=== PATIENT | male | born 1960 | race Caucasian/White ===

== ENCOUNTER 2020-06-29 14:32 | Emergency (ER) | payer OTHER ==
[2020-06-29 15:21] LABS: Protime INR 0.9
[2020-06-29 15:37] LABS: Potassium 4.5 mmol/L (3.5-5.1)
[2020-06-29] MEDS ORDERED: FENTANYL CITR 100 MCG/2 ML ONE (15:39)
--- NOTE | 2020-06-29 15:43 | RAD REPORT ---
EXAM DESCRIPTION: RAD - Hip Right 2 View - 06/29/2020 3:24 pm CLINICAL HISTORY: Right hip pain FINDINGS: A moderately displaced subcapital fracture right femur. No dislocation
[2020-06-29 15:44] LABS: Basophils % 0.5 % (0-1.3); Hematocrit 41.8 % (39.6-49.0); Lymphocytes % 6.2 % (15.3-44.8); MPV 9.5 fL (7.6-11.3); RBC Red Blood Cell Count 4.75 M/uL (4.33-5.43)
[2020-06-29 15:47] LABS: Absolute Lymphocytes (CBC) 1.2 K/uL (0.7-4.9)
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
[2020-06-29 16:42] LABS: Blood Morphology Comment NOT SEEN (NOT SEEN); Platelet Estimate ADEQ
[2020-06-29] MEDS ORDERED: MORPHINE 4 MG/ML SYR ONE (18:27)
[2020-06-29] MEDS ORDERED: D50W 25 GM/50 ML SYRINGE/VIAL IV ONE (18:32)
[2020-06-29] MEDS ORDERED: D5 0.9 NS 1,000 ML IV ONE (18:32)
[2020-06-29 18:51] VITALS: TEMP 99.1
[2020-06-29 18:52] VITALS: BP 123/77; O2SAT 96
--- OUTSIDE RECORDS SUMMARY | 2020-07-04 20:50 | XMS REPORT | Clinical Summary ---
:1960 Author Organization [facility] Address [address] [place] [address] Care Team Providers Name Role Phone Unavailable Primary Care Provider Unavailable Allergies No Known Allergies Medications Medication Sig Dispensed Refills Start End Date Status Date insulin lispro 30 untis daily 0 Active (HUMALOG) 100 6 unit/mL InPn xjiojyrvovkg-Dy-b Take by mouth. 0 Active adriano-minerals Tab lisinopriL TAKE 1 TABLET BY 0 Ac tive (PRINIVIL,ZESTRIL MOUTH DAILY 0 ) 20 MG tablet insulin glargine Inject 50 Units 0 0 Active (LANTUS SOLOSTAR subcutaneously. 0 20 U-100 INSULIN) 100 unit/mL (3 mL) InPn simvastatin Take 20 mg by 0 Acti ve (ZOCOR) 20 MG mouth. 0 tablet aspirin 325 MG Take 1 tablet (325 30 tablet 0 Active tablet mg total) by mouth 0 20 daily for 30 days. docusate sodium Take 1 capsule (100 10 capsule 0 Active (COLACE) 100 MG mg total) by mouth 0 20 capsule 2 (two) times daily for 10 days. HYDROcodone-aceta Take 1 tablet by 30 tablet 0 07/12 Active minophen (NORCO mouth every 4 0 20 5-325) 5-325 mg (four) hours as per tablet needed for up to 10 days. Max Daily Amount: 6 tablets atorvastatin 1 tablet q d 0 06/30/20 Disc ontinued (LIPITOR) 10 MG 2 20 tablet insulin lispro Humalog Kwikpen 0 06/30/20 Discontinued (HUMALOG) 100 INJECT SUBCUTANEOUSLY 90 UN ITS DAILY IN DIVIDED DOSES for 90 day supply 0 20 unit/mL InPn Active Problems Problem Noted Date Hip fracture 06/30/2020 Closed displaced fracture of right femoral neck 2019 Encounters Date Type Specialty Care Team Description 06/30/2020 Anesthesia Event Mathew Pham MD 06/30/2020 Surgery Daquan Shipley ARTHROPIRVIN Y,HIP MD [place] 06/30/2020 Orders Only General Internal Medicine 06/30/2020 Travel 06/29/2020 - Hospital Encounter General Internal Abby, Close d fracture of 07/02/2020 Medicine Misty right hip, init alvaro Levy MD encounter ([facility]) Ayesha Venegas MD after 07/04/2019 Social History Tobacco Use Types Packs/Day Years Used Date Never Smoker Smokeless Tobacco: Never Used Alcohol Use Drinks/Week oz/Week Comments Yes 3 Cans of beer 1.8 once a month Sex Assigned at Date Recorded Not on file Job Start Date Occupation Industry Not on file Not on file Not on file Travel History Travel Start Travel End No recent travel history available. Last Filed Vital Signs Vital Sign Reading Time Taken Blood Pressure 107/55 07/02/2020 11:00 AM CDT Pulse 92 07/02/2020 11:00 AM CDT Temperature 36.4 C (97.5 F) 07/02/2020 11:00 AM CDT Respiratory Rate 18 07/02/2020 11:00 AM CDT Oxygen Saturation 96% 07/02/2020 11:00 AM CDT Inhaled Oxygen Concentration - - Weight 81.6 kg (180 lb) 07/01/2020 9:12 AM CDT Height 175.3 cm (5' 9") 07/01/2020 9:12 AM CDT Body Mass Index 26.58 07/01/2020 9:12 AM CDT Plan of Treatment Health Maintenance Due Date Last Done Comments COLON CANCER SCREENING 1960 COLONOSCOPY INFLUENZA VACCINE (#1) 2020 07/18/2010, 06/28/2010, 07/12/2009, Additional history exists LIPID PANEL 06/30/2025 06/30/2020, 06/12/2020 Implants Implanted Type Area Superior Court Clerk Device Shelf Model / Identifier Expiration Serial / Date Lot Insrt Trident X3 0deg 36mm 623-00-36e - [id number] TOTAL JOINT Right: REILLY:REILLY [id number] 11/27/2024 623-00-36E / Implanted: Qty: 1 on 06/30/2020 by Daquan Shipley MD CONSTRUCT Hip ORTHOPAEDICS / [id number] Hip Stem Accolade Ii 132d 8 [id number] - [id number] TOTAL JOINT Right: REILLY:REILLY [id number] 11/18/2024 [id number] / Implanted: Qty: 1 on 06/30/2020 by Daquan Shipley MD CONSTRUCT Hip ORTHOPAEDICS / [id number] Head Fem 36mm Biolox Delta Cer [id number] - [id number] TOTAL JOIN T Right: REILLY:REILLY [id number] 04/09/2025 [id number] / Implanted: Qty: 1 on 06/30/2020 by Daquan Shipley MD CONSTRUCT Hip ORTHOPAEDICS / [id number] Trident Ii Tritanium Multihole Acetabular Shell Right: [place] [id number] 05/15/2024 [id number] / Implanted: Qty: 1 on 06/30/2020 by Daquan Shipley MD Hip Orthopaedics / [id number] Procedures Procedure Name Priority Date/Time Associated Comments Diagnosis TRANSFUSION SERVICE 07/02/2020 6:01 REPORT - SCAN PM CDT PREPARE RBC Routine 07/02/2020 4:46 Results for this PM CDT procedure are i n the results section. POCT-GLUCOSE METER Routine 07/02/2020 11:20 Resul ts for this AM CDT procedure are i n the results section. POCT-GLUCOSE METER Routine 07/02/2020 8:08 Resul ts for this AM CDT procedure are i n the results section. CBC (HEMOGRAM ONLY) Routine 07/02/2020 5:42 Resu lts for this AM CDT procedure are i n the results section. BASIC METABOLIC PANEL Routine 07/02/2020 5:42 Re sults for this (7) AM CDT procedure are i n the results section. POCT-GLUCOSE METER Routine 07/01/2020 9:25 Resul ts for this PM CDT procedure are i n the results section. TRANSFUSION SERVICE 07/01/2020 6:00 REPORT - SCAN PM CDT POCT-GLUCOSE METER Routine 07/01/2020 4:21 Resul ts for this PM CDT procedure are i n the results section. POCT-GLUCOSE METER Routine 07/01/2020 12:08 Resul ts for this PM CDT procedure are i n the results section. ECG 12-LEAD Routine 07/01/2020 11:25 AM CDT Procedure Note - Interface, External Ris In - 07/01/2020 1:28 PM CDT Ventricular Rate 100 BPM Atrial Rate 100 BPM P-R Interval 130 ms QRS Duration 72 ms Q-T Interval 334 ms QTC Calculation(Bazett) 430 ms P Stinnett 50 degrees R Stinnett 11 degrees T Stinnett 34 degrees Normal sinus rhythm Normal ECG When compared with ECG of 08:27, No significant change was fo und ECG 12-LEAD Routine 07/01/2020 11:25 AM Results for this CDT procedure are i n the results section. ANTIBODY IDENTIFICATION Routine 07/01/2020 9:24 AM Results for this CDT procedure are i n the results section. POCT-GLUCOSE METER Routine 07/01/2020 7:06 AM Re sults for this CDT procedure are i n the results section. CBC (HEMOGRAM ONLY) Routine 07/01/2020 4:55 AM R esults for this CDT procedure are i n the results section. BASIC METABOLIC PANEL Routine 07/01/2020 4:55 AM Results for this (7) CDT procedure are i n the results section. POCT-GLUCOSE METER Routine 06/30/2020 9:25 PM Re sults for this CDT procedure are i n the results section. POCT-GLUCOSE METER Routine 06/30/2020 4:34 PM Re sults for this CDT procedure are i n the results section. XR PELVIS 1 OR 2 VIEWS STAT 06/30/2020 3:15 PM Results for this CDT procedure are i n the results section. XR PELVIS 1 OR 2 VIEWS STAT 06/30/2020 2:10 PM Results for this CDT procedure are i n the results section. ARTHROPLASTY,HIP 06/30/2020 12:30 PM Closed right hip CDT fracture, initial encounter (HCC) ABORH, MANUAL STAT 06/30/2020 12:02 PM Results for this CDT procedure are i n the results section. POCT-GLUCOSE METER Routine 06/30/2020 11:08 AM Re sults for this CDT procedure are i n the results section. TYPE AND SCREEN, Routine 06/30/2020 9:54 AM Resu lts for this AUTOMATED CDT procedure are i n the results section. ECG 12-LEAD Routine 06/30/2020 8:27 AM CDT Procedure Note - Interface, External Ris In - 06/30/2020 1:28 PM CDT Ventricular Rate 95 BPM Atrial Rate 95 BPM P-R Interval 144 ms QRS Duration 68 ms Q-T Interval 342 ms QTC Calculation(Bazett) 429 ms P Stinnett 52 degrees R Stinnett 11 degrees T Stinnett 35 degrees Normal sinus rhythm Normal ECG No previous ECGs available ECG 12-LEAD STAT 06/30/2020 8:27 AM CDT Resu lts for this procedure are i n the results section . POCT-GLUCOSE METER Routine 06/30/2020 7:05 AM CDT Results for this procedure are i n the results section . SARS-COV2/RT-PCR (HS & Routine 06/30/2020 4:51 AM CDT Results for this REF LABS) procedure are i n the results section . CBC W/PLT COUNT & AUTO Routine 06/30/2020 4:40 AM CDT Results for this DIFFERENTIAL procedure are i n the results section . CBC W/PLT COUNT & AUTO Routine 06/30/2020 4:40 AM CDT Results for this DIFFERENTIAL procedure are i n the results section . LIPID PANEL Routine 06/30/2020 4:40 AM CDT Resu lts for this procedure are i n the results section . HEPATIC FUNCTION PANEL Routine 06/30/2020 4:40 AM CDT Results for this procedure are i n the results section . HEMOGLOBIN A1C Routine 06/30/2020 4:40 AM CDT Re sults for this procedure are i n the results section . BASIC METABOLIC PANEL (7) Routine 06/30/2020 4:40 AM CDT Results for this procedure are i n the results section . POCT-GLUCOSE METER Routine 06/29/2020 11:21 PM CDT Results for this procedure are i n the results section . POCT-GLUCOSE METER Routine 06/29/2020 10:31 PM CDT Results for this procedure are i n the results section . after 07/04/2019 Results TRANSFUSION SERVICE REPORT - SCAN (07/02/2020 6:01 PM CDT)Only the most recent of2 resultswithin the time period is included. Narrative Performed At This result has an attachment that is no t available. Prepare RBC (07/02/2020 4:46 PM CDT) Unit ABO A Pos [place] UNIT NUMBER [id number] [place] Status WORK IN PROGRESS [place] Blood Bank Product RED BLOOD CELLS [place] PRODUCT CODE [id number] SAFETRACE TX Unit ABO A Pos [place]AF[place]ACE [place] UNIT NUMBER [id number] [place]AFET[place]ACE [place] Status WORK IN PROGRESS SAFETRACE [place] Blood Bank Product RED BLOOD CELLS [place] PRODUCT CODE [id number] [place] CROSSMATCH COMPATIBLE [place] CROSSMATCH COMPATIBLE S[place] Specimen Performing Organization Address [facility] Phone Number [place] POC-Glucose meter (07/02/2020 11:20 AM CDT)Only the most recent of12 results within the time period is included. POC-Glucose Meter 142 (H)Comment: : TESTED 70 - 110 mg/dL [facility] AT [address], [address]: Mud Mixer Helper/Plastic Parts Fabricator Trimmer ID = [id number] for HERBIE PAUL Specimen Blood Performing Organization Address [facility] [place] [address] CENTER CBC (Hemogram only) (07/02/2020 5:42 AM CDT)Only the most recent of2 results within the time period is included. WBC 13.6 (H) 3.5 - 10.5 K/L [facility] RBC 3.83 (L) 4.63 - 6.08 M/L [facility] Hemoglobin 11.2 (L) 13.7 - 17.5 GM/DL [facility] Hematocrit 34.9 (L) 40.1 - 51.0 % [facility] MCV 91.1 79.0 - 92.2 fL [facility] MCH 29.2 25.7 - 32.2 pg [facility] MCHC 32.1 (L) 32.3 - 36.5 GM/DL [facility] RDW 12.9 11.6 - 14.4 % [facility] Platelets 158 150 - 450 K/CU MM [facility] MPV 12.1 9.4 - 12.4 fL [facility] nRBC 0 0 - 0 /100 WBC [facility] Specimen Blood Performing Organization Address City/[facility]/Zipcode Phone Number [facility] [address] [place] [address] CENTER Basic metabolic panel (07/02/2020 5:42 AM CDT)Only the most recent of3 results within the time period is included. Sodium 135 (L) 136 - 145 meq/L [facility] Potassium 4.6Comment: Specimen slightly 3.5 - 5.1 meq/L CH I [facility] Chloride 104 98 - 107 meq/L [facility] CO2 22 22 - 29 meq/L [facility] BUN 19 7 - 21 mg/dL [facility] Creatinine 1.20Comment: Specimen 0.57 - 1.25 mg/dL [facility] slightly hemolyzed [facility] Glucose 202 (H) 70 - 105 mg/dL [facility] Calcium 7.6 (L) 8.4 - 10.2 mg/dL [facility] EGFR 61Comment: ESTIMATED GFR IS mL/min/1.73 sq m [facility] NOT ACCURATE CREATININE AL DICAL CENTER CLEARANCE IN PREDICTING GLOMERULAR FILTRATION RATE. ESTIMATED GFR IS NOT APPLICABLE FOR DIALYSIS PATIENTS. Specimen Blood Narrative Performed At Mud Mixer Helper ID - CLAUDEASI [facility] Performing Organization Address City/State/Zipcode Phone Number [facility] [address] [place] [address] CENTER ECG 12 lead (07/01/2020 11:25 AM CDT)Only the most recent of2 resultswithin the time period is included. Specimen Narrative Performed At Ventricular Rate 100 BPM GE MUSE Atrial Rate 100 BPM P-R Interval 130 ms QRS Duration 72 ms Q-T Interval 334 ms QTC Calculation(Bazett) 430 ms P Stinnett 50 degrees R Stinnett 11 degrees T Stinnett 34 degrees Normal sinus rhythm Normal ECG When compared with ECG of 30-JUN-2020 08 :27, No significant change was found Confirmed by MD MISHRA JOSEPH P ([id number]) on 0 6:41:06 AM Procedure Note Interface, External Ris In - 07/02/2020 6:41 AM CDT Ventricular Rate 100 BPM Atrial Rate 100 BPM P-R Interval 130 ms QRS Duration 72 ms Q-T Interval 334 ms QTC Calculation(Bazett) 430 ms P Stinnett 50 degrees R Stinnett 11 degrees T Stinnett 34 degrees Normal sinus rhythm Normal ECG When compared with ECG of 30-JUN-2020 08 :27, No significant change was found Confirmed by MD MISHRA JOSEPH P ([id number]) on 07/02/2020 6:41:06 AM Performing Organization Address City/State/Zipcode Phone Number GE MUSE Antibody identification (07/01/2020 9:24 AM CDT) ANTIBODY ID (JOSIAH) UNID IgG SAFETRACE T X Antibody Consult SIGNED OUTComment: An IgG antibody of [place] undetermined specificity is detected, transfuse crossmatch compatible RBCs.Electronic Signature: Leonel Zepeda M.D. Specimen Performing Organization Address City/State/Zipcode Phone Number [place] XR pelvis 1 or 2 views (06/30/2020 3:15 PM CDT)Only the most recent of2 results within the time period is included. Specimen Narrative Performed At FINAL REPORT [employer] RAD, PELVIS, 1 OR 2 VIEWS TECHNIQUE: Single frontal radiograph of pelvis HISTORY: arthroplasty. COMPARISON: Prior radiograph same day at 1351 hours IMPRESSION: The patient is status post interval righ t total hip arthroplasty. The femoral aidan and acetabular cup appear we ll positioned on this single frontal radiograph. No new fracture identified. No unexpected radiopaque foreign body. E xpected soft tissue gas related to recent surgery. Signed: Celia Self MD Report Verified Date/Time:06/30/2020 16:25:30 Reading [facility] Body R eading Room Procedure Note Interface, External Ris In - 06/30/2020 4:27 PM CDT FINAL REPORT RAD, PELVIS, 1 OR 2 VIEWS TECHNIQUE: Single frontal radiograph of pelvis HISTORY: arthroplasty. COMPARISON: Prior radiograph same day at 1351 hours IMPRESSION: The patient is status post interval righ t total hip arthroplasty. The femoral aidan and acetabular cup appear we ll positioned on this single frontal radiograph. No new fracture identified. No unexpected radiopaque foreign body. E xpected soft tissue gas related to recent surgery. Signed: Celia Self MD Report Verified Date/Time: 06/30/2020 1 6:25:30 Reading Location: [facility] B1 C013[facility] CT Body R eading Room Performing Organization Address City/State/Zipcode Phone Number GE RIS ABORH, manual (06/30/2020 12:02 PM CDT) ABO Grouping A [facility] Rh Factor POS [facility] Specimen Blood Performing Organization Address City/[facility]/Zipcode Phone Number [address] [address] Type and screen, automated (06/30/2020 9:54 AM CDT) ABO/RH AUTOMATED (BEAKER) A POSITIVE [facility] Ab Scrn POSITIVEComment: echo2 [facility] Specimen Blood Performing Organization Address City/[facility]/Zipcode Phone Number [address] [address] SARS-CoV2/RT-PCR (Asymptomatic ONLY) (06/30/2020 4:51 AM CDT) SARS-COV2/RT-PCR Negative Not Detected, Negative, [facility] See external report for MEDICAL CENTER linked test SARS-COV-2 PERFORMING LAB [facility] Specimen Other Narrative Performed At Negative result for this test determines that [facility] SARS-CoV-2 RNA was not present in the specimen above the Limit of Detection (LOD).However, Negative results do not preclude SARS-CoV-2 infection and should not be used as the sole basis for treatment or patient management decisions. Negative results must be combined with clinical observations, patient history, and epidemiological information. A false negative result may occur if a specimen is improperly collected, transported or handled.A false negative result should be considered if patient's recent exposures or clinical presentation indicate that COVID-19 (SARS-CoV-2) is likely and diagnostic tests for other causes of illness are negative.Re-testing should be considered in cases of suspected false negatives. The limit of detection for this assay is 800 copies/mL. This SARS CoV-2 test is a real-time RT-PCR test intended for the qualitative detection of nucleic acid from SARS-CoV-2 in a nasopharyngeal swab specimen collected from individuals suspected of COVID-19 by their healthcare provider. This test has not been Food and Drug Administration (FDA) cleared or approved.This is a modified version of an approved Emergency Use Authorization (EUA) and is in the process of review by the FDA. Once authorized by the FDA, the issued EUA will be effective until the declaration that circumstances exist justifying the authorization of the emergency use of in vitro diagnostic tests for detection and/or diagnosis of COVID-19 is terminated under Section 564(b)(2) of the Act or the EUA is revoked under Section 564(g) of the Act. Fact Sheet for Healthcare Providers: https://www.[employer].com/sites/default/files/pro duct/documents/Fact_Sheet_HC_Providers_Lyra_SA RS-CoV-2.pdf Fact Sheet for Healthcare Patients: https://www.[employer]/sites/default/files/pro duct/documents/Fact_Sheet_Patients_Lyra_SARS-C oV-2.pdf Performing Laboratory: [facility] [address] [place] [address] Performing Organization Address City/State/Zipcode Phone Number [facility] [address] [place] [address] CENTER CBC with platelet count + automated diff (06/30/2020 4:40 AM CDT) WBC 12.2 (H) 3.5 - 10.5 K/L [facility] RBC 4.44 (L) 4.63 - 6.08 M/L [facility] Hemoglobin 12.8 (L) 13.7 - 17.5 GM/DL [facility] Hematocrit 40.3 40.1 - 51.0 % [facility] MCV 90.8 79.0 - 92.2 fL [facility] MCH 28.8 25.7 - 32.2 pg [facility] MCHC 31.8 (L) 32.3 - 36.5 GM/DL [facility] RDW 12.9 11.6 - 14.4 % [facility] Platelets 171 150 - 450 K/CU MM [facility] MPV 11.2 9.4 - 12.4 fL [facility] nRBC 0 0 - 0 /100 WBC [facility] % Neutros 72 % [facility] % Lymphs 13 % [facility] % Monos 12 % [facility] % Eos 3 % [facility] % Baso 0 % [facility] # Neutros 8.82 (H) 1.78 - 5.38 K/L [facility] # Lymphs 1.57 1.32 - 3.57 K/L [facility] # Monos 1.45 (H) 0.30 - 0.82 K/L [facility] # Eos 0.31 0.04 - 0.54 K/L [facility] # Baso 0.05 0.01 - 0.08 K/L [facility] Immature Granulocytes-Relative 0 0 - 1 % C [facility] Specimen Blood Performing Organization Address City/[facility]/Zipcode Phone Number [address] [address] CENTER Hemoglobin A1c (06/30/2020 4:40 AM CDT) Hemoglobin A1C 5.8 4.3 - 6.1 % [facility] Specimen Blood Performing Organization Address City/[facility] Phone Number [address] [address] [place] Hepatic function panel (06/30/2020 4:40 AM CDT) Protein, Total 6.1 6.0 - 8.3 gm/dL [facility] Albumin 3.5 3.5 - 5.0 g/dL [facility] Total Bilirubin 1.5 (H) 0.2 - 1.2 mg/dL [facility] Bilirubin, Direct 0.7 (H) 0.1 - 0.5 mg/dL [facility] Alkaline Phosphatase 63 40 - 150 U/L [facility] AST 21 5 - 34 U/L [facility] ALT 24 6 - 55 U/L [facility] Specimen Blood Narrative Performed At Mud Mixer Helper ID - PIAYA L [facility] Performing Organization Address City/[facility] Phone Number [address] [address] CENTER Lipid panel (06/30/2020 4:40 AM CDT) Triglycerides 81 mg/dL [facility] Cholesterol 107 mg/dL [facility] HDL 37 mg/dL [facility] LDL Calculated 54 mg/dL [facility] Specimen Blood Narrative Performed At Triglyceride Reference Range: [facility] Low Risk <150 [id number] High Risk 200-499 Very High Risk>=500 Cholesterol Reference Range: Low Risk <200 [id number] High Risk>240 HDL Cholesterol Reference Range: Low Risk >=60 High Risk <40 LDL Cholesterol Reference Range: Optimal<100 Near [id number] [id number] Very High >=190 Mud Mixer Helper ID - MARYJO Catherine Performing Organization Address City/State/Zipcode Phone Number [facility] [address] [place] [address] [place] after 07/04/2019 Insurance Payer Benefit Plan / Group Subscriber ID Type Phone A ddress [facility] [employer] POS [employer] xxxxxxxxx HMO/POS CARE CHOICE (Work) [id number] Advance Directives For more information, please contact:[address] [phone] Code Status Date Activated Date Inactivated Comments Full Code 06/30/2020 7:45 AM 07/02/2020 6:46 PM This code status was determined by: Patient
--- OUTSIDE RECORDS SUMMARY | 2020-07-04 20:51 | XMS REPORT | Continuity of Care Document ---
:1960 Author Organization [facility] t Address [address] [place] [address] Care Team Providers Name Role Phone Abby SALAS, Misty Levy Attending Clinician [phone] Hemalatha Venegas MD Attending Clinician Georges Pham MD Attending Clinician Leighton Shipley MD Attending Clinician BETZY CHAIDEZ Attending Clinician Unavailable MARVEL Attending Clinician Unavailable BETZY CHAIDEZ Admitting Clinician Unavailable Payers Payer Name Policy Type Policy Number Effective Date Expiration Date S laura [place] xxxxxxxxx [facility] - [facility] - Medica l CAREUNITED O Center POS SELECT CHOICExxxxxxxxxH MO/POS Problems Condition Condition Condition Status Onset Resolution Last Treating Co mments Source Name Details Category Date Date Treatment Clinician Date Hip Hip Disease Active 2019-[address] [facility] [address] fracture fracture 0-03 [facility] Center Closed Closed Disease Active 2019-[address] [facility] [address] displaced displaced 0-03 ke s - fracture fracture 00:00: Medica l of right of right 00 Center femoral femoral neck neck Allergies, Adverse Reactions, Alerts This patient has no known allergies or adverse reactions. Social History Social Habit Start Date Stop Date Quantity Comments Source Sex Assigned At [facility] Alcohol Comment 2020-06-30 2020-06-30 once a month [facility] - 00:00:00 00:00:00 [facility] [place] Smoking Status Start Date Stop Date Source Never smoker [facility] Medications Ordered Filled Start Stop Current Ordering Indication Dosage Frequency Signature Comments Components Source Medication Medication Date Date Medication? Clinician (SIG) Name Name aspirin 325 2019-09 2020- Yes 325mg QD Take [address] [facility] tablet 0-06 11-05 tablet [facility] - 00:00: 23:59 (325 mg Medical 00 :00 total) by Center mouth daily for 30 days. docusate 2019-09- Yes 100mg Q.5D Take 1 [facility] sodium 0-05 10-15 capsule [facility] - (COLACE) 00:00: 23:59 (100 mg Medic al 100 MG 00 :00 total) by [place] capsule mouth 2 (two) times daily for 10 days. HYDROcodone 2019-09- Yes 1{tbl} Take [address] -acetaminop 0-05 10-15 tablet by Pamella quinones (NORCO 00:00: 23:59 mouth Medic al 5-325) 00 :00 every 4 Center 5-325 mg (four) per tablet hours as needed for up to 10 days. Max Daily Amount: 6 tablets multivitami 2019-09 Yes Take by [facility]-Ca-iron-m 003 mouth. [facility] - inerals Tab 12:34: Medica l 38 [place] insulin 2019- Yes 50U Inject [address] glargine 9-22 12-21 Units [facility] - (LANTUS 00:00: 23:59 subcutaneo Med ical SOLOSTAR 00 :00 usly. [place] U-100 INSULIN) 100 unit/mL (3 mL) In lisinopriL Yes TAKE 1 [facility] (PRINIVIL,Z 6-08 TABLET BY Da Machado ESTRGARY) 20 00:00: MOUTH Medica l MG tablet 00 DAILY [place] insulin 2020- No Humalog [facility] lispro 6-08 10-03 Kwikpen [facility] - (HUMALOG) 00:00: 00:00 INJECT Medic al 100 unit/mL 00 :00 SUBCUTANEO Ce nter InPn USLY 90 UNITS DAILY IN DIVIDED DOSES for 90 day supply simvastatin Yes 20mg Take [address] (ZOCOR) 20 1-21 by mouth. Luke s - MG tablet 00:00: Medical 00 [place] insulin Yes [address] lispro 5-26 daily [facility] - (HUMALOG) 00:00: Medical 100 unit/mL 00 Center InPn atorvastati 2001- 2020- No 1 tablet q [facility] St n (LIPITOR) 10-15 d [facility] - 10 MG 00:00: 00:00 Medical tablet 00 :00 [place] Vital Signs Vital Name Observation Time Observation Value Comments Source Systolic blood 2020-07-02 11:00:00 107 mm[Hg] [facility] Diastolic blood 2020-07-02 11:00:00 55 mm[Hg] [facility] Heart rate 2020-07-02 11:00:00 92 /min [facility] Body temperature 2020-07-02 11:00:00 36.39 Jennifer [facility] Respiratory rate 2020-07-02 11:00:00 18 /min [facility] Oxygen saturation in 2020-07-02 11:00:00 96 /min [facility] Arterial blood by Medical Ce nter Pulse oximetry Body height 2020-07-01 09:12:00 175.3 cm [facility] Body weight Measured 2020-07-01 09:12:00 81.647 kg [facility] BMI 2020-07-01 09:12:00 26.58 kg/m2 [facility] Procedures Procedure Date / Time Performing Clinician Source Performed TRANSFUSION SERVICE 2020-07-02 18:01:03 Provider, Default [facility] REPORT - SCAN Scanning [facility] PREPARE RBC 2020-07-02 16:46:00 Daquan Shipley [facility] POCT-GLUCOSE METER 2020-07-02 11:20:00 Ayesha Venegas [facility] POCT-GLUCOSE METER 2020-07-02 08:08:00 Ayesha Venegas [facility] BASIC METABOLIC PANEL (7) 2020-07-02 05:42:00 Daquan Shipley [facility] CBC (HEMOGRAM ONLY) 2020-07-02 05:42:00 Daquan Shipley [facility] POCT-GLUCOSE METER 2020-07-01 21:25:00 Ayesha Venegas [facility] TRANSFUSION SERVICE 2020-07-01 18:00:40 Provider, Roxy [facility] POCT-GLUCOSE METER 2020-07-01 16:21:00 Ayesha Venegas [facility] POCT-GLUCOSE METER 2020-07-01 12:08:00 Ayesha Venegas [facility] ECG 12-LEAD 2020-07-01 11:25:55 Unknown, Hl7 [facility] ANTIBODY IDENTIFICATION 2020-07-01 09:24:00 [facility] POCT-GLUCOSE METER 2020-07-01 07:06:00 Ayesha Venegas [facility] BASIC METABOLIC PANEL (7) 2020-07-01 04:55:00 [facility] CBC (HEMOGRAM ONLY) 2020-07-01 04:55:00 [facility] POCT-GLUCOSE METER 2020-06-30 21:25:00 Ayesha Venegas [facility] POCT-GLUCOSE METER 2020-06-30 16:34:00 Ayesha Venegas [facility] XR PELVIS 1 OR 2 VIEWS 2020-06-30 15:15:00 [facility] XR PELVIS 1 OR 2 VIEWS 2020-06-30 14:10:00 [facility] ARTHROPLASTY,HIP 2020-06-30 12:30:00 [facility] ABORH, MANUAL 2020-06-30 12:02:00 Ivette Pope [facility] POCT-GLUCOSE METER 2020-06-30 11:08:00 Ayesha Venegas [facility] TYPE AND SCREEN, 2020-06-30 09:54:00 [facility] ECG 12-LEAD 2020-06-30 08:27:20 Unknown, Hl7 [facility] POCT-GLUCOSE METER 2020-06-30 07:05:00 Ayesha Venegas [facility] SARS-COV2/RT-PCR ([facility] & 2020-06-30 04:51:00 Misty Chaidez [facility] - REF LABS) [facility] BASIC METABOLIC PANEL (7) 2020-06-30 04:40:00 [facility] HEMOGLOBIN A1C 2020-06-30 04:40:00 [facility] HEPATIC FUNCTION PANEL 2020-06-30 04:40:00 [facility] I [facility] LIPID PANEL 2020-06-30 04:40:00 [facility] CBC W/PLT COUNT & AUTO 2020-06-30 04:40:00 [facility] POCT-GLUCOSE METER 2020-06-29 23:21:00 Abby [facility] POCT-GLUCOSE METER 2020-06-29 22:31:00 [facility] Misty [facility] Plan of Care Planned Activity Planned Date Details Comments Source Future Scheduled 2025-06-[address] [facility] - Test 00:00:00 (procedure) [code = [facility] 27577413] Future Scheduled 2020-05-[address] [facility] Test 00:00:00 (#1) [code = [facility] INFLUENZA VACCINE (#1)] Future Scheduled [address] [facility] - Test 00:00:00 malignant neoplasm Medical C enter of colon (procedure) [code = 460076143] Encounters Start End Encounter Admission Attending Care Care Encounter Source Date/Time Date/Time Type Type Clinicians Facility Department ID 2020-06-19 2020-06-19 [id number] 00:00:00 00:00:00 [facility] [address] 2020-02-21 2020-02-21 [id number] [facility] 00:00:00 00:00:00 [facility] [address] Results Test Description Test Time Test Comments Results Result Comments Source Prepare RBC 2020-07-02 16:46:00 Test Item Value Reference Range Interpretation Comme nts Unit ABO (test code = 9728562) A Pos UNIT NUMBER (test code = 934-0) [id number] Status (test code = 6384627) WORK IN PROGRESS Blood Bank Product (test code = 2263) RED BLOOD CELLS PRODUCT CODE (test code = 933-2) [id number] CROSSMATCH (test code = 2264) COMPATIBLE [facility] [id number] 11:32:00 Test Item Value Reference Range Interpretation Comments POC-Glucose Meter (test 142 mg/dL 70-110 H : TE STED AT [facility] code = 1538) [address] [facility], 770 30: Quantitative Developer/Techni kamerno ID = [id number] for MELIDA PAUL [facility] Lab Interpretation (test Abnormal code = 74116-3) [facility]-GLUCOSE [id number] 11:32:00 Test Item Value Reference Range Interpretation Comments POC-GLUCOSE METER 142 mg/dL 70-110 H [facility] (test code = [facility], 1538) [address]: Quantitative Developer/Techni kameron ID = [id number] for HERBIE MALIK POCT-GLUCOSE [id number] 08:20:00 Test Item Value Reference Range Interpretation Comments POC-GLUCOSE METER 183 mg/dL 70-110 H : [facility] ([facility] (test code = [facility], 1538) 09600: Quantitative Developer/Techni kameron ID = [id number] for HERBIE MALIK Basic metabolic [id number] 07:10:00 Test Item Value Reference Range Interpretation Comments Sodium (test code = 135 meq/L 136-145 L 2951-2) Potassium (test code = 4.6 meq/L 3.5-5.1 Speci men slightly 2823-3) hemolyzed Chloride (test code = 104 meq/L 98-107 5-0) CO2 (test code = 22 meq/L 22-29 8-9) BUN (test code = 19 mg/dL 7-21 3094-0) Creatinine (test code 1.20 mg/dL 0.57-1.25 Specim en slightly = 2160-0) hemolyzed Glucose (test code = 202 mg/dL 70-105 H 2345-7) Calcium (test code = 7.6 mg/dL 8.4-10.2 L 29624-4) EGFR (test code = 61 mL/min/1.73 [place] [address]-2) NOT ACCURATE CREATININE CLEARANCE IN PREDICTING GLOMERULAR FILTRATION RATE . ESTIMATED GFR I S NOT APPLICABLE FOR DIALYSIS PATIENTS. LUPE (test code = LUPE) Quantitative Developer ID - [email or web address] Lab Interpretation Abnormal (test code = 61072-9) [facility] METABOLIC [id number] 07:10:00 Test Item Value Reference Range Interpretation Comments SODIUM (BEAKER) 135 meq/L 136-145 L (test code = 381) POTASSIUM (BEAKER) 4.6 meq/L 3.5-5.1 Specimen slightly (test code = 379) hemolyzed CHLORIDE (BEAKER) 104 meq/L 98-107 (test code = 382) CO2 (BEAKER) (test 22 meq/L 22-29 code = 355) BLOOD UREA NITROGEN 19 mg/dL 7-21 (BEAKER) (test code = 354) CREATININE (BEAKER) 1.20 mg/dL 0.57-1.25 Specimen slightly (test code = 358) hemolyzed GLUCOSE RANDOM 202 mg/dL 70-105 H (BEAKER) (test code = 652) CALCIUM (BEAKER) 7.6 mg/dL 8.4-10.2 L (test code = 697) EGFR (BEAKER) (test 61 mL/min/1.73 ESTIMA JUAN GFR IS code = 1092) sq m NOT ACCURATE CREATININE CLEARANCE IN PREDICTING GLOMERULAR FILTRATION RATE . ESTIMATED GFR I S NOT APPLICABLE FOR DIALYSIS PATIEN TS. Quantitative Developer ID - [id number] [id number] 06:41:11Interface, External Ris In - 07/02/2020 6:41 AM CDTVentricular Rate 100 BPMAtrial Rate 100 BPMP-R Interval 130 msQRS Duration 72 msQ-T Interval 334 msQTC Calculation(Bazett) 430 msP [place] 50 degreesR [place] 11 degreesT [place] 34 degreesNormal sinus rhythmNormal ECGWhen compared with ECG of 30-JUN-2020 08:27,No significant change was foundConfirmed by MD DANICA, ASIF Bay ([id number]) on 07/02/2020 6:41:06 [facility] (Hemogram only)2020-07-02 06:18:00 Test Item Value Reference Range Interpretation Comments WBC (test code = 6690-2) 13.6 3.5- 10.5 K/L H RBC (test code = 789-8) 3.83 4.63- 6.08 M/L L MCHC (test code = 786-4) 32.1 32.3- 36.5 GM/DL L Hematocrit (test code = 4544-3) 34.9 % 40.1-51 L MCV (test code = 787-2) 91.1 fL 79-92.2 MCH (test code = 785-6) 29.2 pg 25.7-32.2 RDW (test code = 788-0) 12.9 % 11.6-14.4 Platelets (test code = 777-3) 158 150- 450 K/CU MM MPV (test code = 21577-1) 12.1 fL 9.4-12.4 nRBC (test code = 413) 0 0- 0 /100 WBC Lab Interpretation (test code = Abnormal 73765-0) [facility] (HEMOGRAM ONLY)2020-07-02 06:18:00 Test Item Value Reference Range Interpretation Comments WHITE BLOOD CELL COUNT (BEAKER) 13.6 K/ L 3.5-10.5 H (test code = 775) RED BLOOD CELL COUNT (BEAKER) 3.83 M/ L 4.63-6.08 L (test code = 761) HEMOGLOBIN (BEAKER) (test code = 11.2 GM/DL 13.7-17.5 L 410) HEMATOCRIT (BEAKER) (test code = 34.9 % 40.1-51.0 L 411) MEAN CORPUSCULAR VOLUME (BEAKER) 91.1 fL 79.0-92.2 (test code = 753) MEAN CORPUSCULAR HEMOGLOBIN 29.2 pg 25.7-32.2 (BEAKER) (test code = 751) MEAN CORPUSCULAR HEMOGLOBIN CONC 32.1 GM/DL 32.3-36.5 L (BEAKER) (test code = 752) RED CELL DISTRIBUTION WIDTH 12.9 % 11.6-14.4 (BEAKER) (test code = 412) PLATELET COUNT ([facility]) (test 158 K/CU MM 150-450 code = 756) MEAN PLATELET VOLUME (AKER) 12.1 fL 9.4-12.4 (test code = 754) NUCLEATED RED BLOOD CELLS 0 /100 WBC 0-0 (AKER) (test code = 413) POCT-GLUCOSE [id number] 21:46:00 Test Item Value Reference Range Interpretation Comments POC-GLUCOSE METER 180 mg/dL 70-110 H : TESTED A T [facility] 6720 ([facility]) (test code [facility], = 1538) 59353: Quantitative Developer/Techni kameron ID = [id number] for TIMMONS NANCY POCT-GLUCOSE [id number] 16:33:00 Test Item Value Reference Range Interpretation Comments POC-GLUCOSE METER 158 mg/dL 70-110 H : TESTED A T [facility] 6720 ([facility]) (test code = [facility], 1538) 49574: Quantitative Developer/Techni kameron ID = [id number] for HERBIE MALIK POCT-GLUCOSE [id number] 12:19:00 Test Item Value Reference Range Interpretation Comments POC-GLUCOSE METER 270 mg/dL 70-110 H : TESTED A T [facility] 6720 ([facility]) (test code = [facility], 1538) 04721: Quantitative Developer/Techni kameron ID = [id number] for HERBIE MALIK Antibody [id number] 09:24:00 Test Item Value Reference Range Interpretation Comments ANTIBODY ID ([facility]) UNID IgG (test code = 2253) Antibody Consult SIGNED OUT An IgG anti body of (test code = 2479) undetermi padmini specificity is detected, trans fuse crossmatch comp atible RBCs.Electronic Signature: Leonel Zepeda M.D. [facility] [id number] 07:18:00 Test Item Value Reference Range Interpretation Comments POC-GLUCOSE METER 272 mg/dL 70-110 H : TESTED A T [facility] 6720 (BEAKER) (test code = [place], 1538) [address]: Quantitative Developer/Techni kameron ID = [id number] for HERBIE MALIK BASIC METABOLIC [id number] 06:07:00 Test Item Value Reference Range Interpretation Comments SODIUM (BEAKER) 132 meq/L 136-145 L (test code = 381) POTASSIUM (BEAKER) 4.4 meq/L 3.5-5.1 (test code = 379) CHLORIDE (BEAKER) 103 meq/L 98-107 (test code = 382) CO2 (BEAKER) (test 22 meq/L 22-29 code = 355) BLOOD UREA NITROGEN 25 mg/dL 7-21 H (BEAKER) (test code = 354) CREATININE (BEAKER) 1.30 mg/dL 0.57-1.25 H (test code = 358) GLUCOSE RANDOM 301 mg/dL 70-105 H (BEAKER) (test code = 652) CALCIUM (BEAKER) 7.2 mg/dL 8.4-10.2 L (test code = 697) EGFR (BEAKER) (test 56 mL/min/1.73 ESTIMA JUAN GFR IS code = 1092) sq m NOT ACCURATE CREATININE CLEARANCE IN PREDICTING GLOMERULAR FILTRATION RATE . ESTIMATED GFR I S NOT APPLICABLE FOR DIALYSIS PATIEN TS. Quantitative Developer ID - [id number] (HEMOGRAM ONLY)2020-07-01 05:29:00 Test Item Value Reference Range Interpretation Comments WHITE BLOOD CELL COUNT (BEAKER) 14.6 K/ L 3.5-10.5 H (test code = 775) RED BLOOD CELL COUNT (BEAKER) 3.73 M/ L 4.63-6.08 L (test code = 761) HEMOGLOBIN (BEAKER) (test code = 11.1 GM/DL 13.7-17.5 L 410) HEMATOCRIT (BEAKER) (test code = 34.1 % 40.1-51.0 L 411) MEAN CORPUSCULAR VOLUME (BEAKER) 91.4 fL 79.0-92.2 (test code = 753) MEAN CORPUSCULAR HEMOGLOBIN 29.8 pg 25.7-32.2 (BEAKER) (test code = 751) MEAN CORPUSCULAR HEMOGLOBIN CONC 32.6 GM/DL 32.3-36.5 (BEAKER) (test code = 752) RED CELL DISTRIBUTION WIDTH 12.8 % 11.6-14.4 (BEAKER) (test code = 412) PLATELET COUNT (BEAKER) (test 126 K/CU MM 150-450 L code = 756) MEAN PLATELET VOLUME (BEAKER) 12.1 fL 9.4-12.4 (test code = 754) NUCLEATED RED BLOOD CELLS 0 /100 WBC 0-0 (BEAKER) (test code = 413) POCT-GLUCOSE [id number] 21:37:00 Test Item Value Reference Range Interpretation Comments POC-GLUCOSE METER 379 mg/dL 70-110 H : TESTED A T [facility] 6720 (BEAKER) (test code = [employer] [facility], 1538) 01849: Quantitative Developer/Techni kameron ID = [id number] for DEVIN GRANT POCT-GLUCOSE [id number] 16:46:00 Test Item Value Reference Range Interpretation Comments POC-GLUCOSE METER 278 mg/dL 70-110 H : TESTED A T [facility] 6720 (BEAKER) (test code = [employer] [facility], 1538) 85859: Quantitative Developer/Techni kameron ID = [id number] for LC SHERMAN RAD, PELVIS, 1 OR 2 [id number] 16:25:00Reason for exam:- >arthroplastyShould this be performed at the bedside?->NoFINAL REPORT RAD, PELVIS, 1 OR 2 VIEWS TECHNIQUE: Single frontal radiograph of pelvis HISTORY: arthroplasty. COMPARISON: Prior radiograph same day at 1351 hours IMPRESSION:The patient is status post interval right total hip arthroplasty. The femoral aidan and acetabular cup appearwell positioned on this single frontal radiograph.No new fracture identified.No unexpected radiopaque foreign body. Expected soft tissue gas related to recent surgery. Signed: Celia Ribeiro Verified Date/Time: 06/30/2020 16:25:30 Reading Location: [facility] B1 C013Y CT Body Reading Room XR pelvis 1 or 2 [id number] 16:25:00Interface, External Ris In - 06/30/2020 4:27 PM CDTFINAL REPORT RAD, PELVIS,1 OR 2 VIEWS TECHNIQUE: Single frontal radiograph of pelvis HISTORY: arthroplasty. COMPARISON: Priorradiograph same day at 1351 hours IMPRESSION:The patient is status post interval right total hip arthroplasty. The femoral aidan and acetabular cup appear well positioned on this single frontal radiograph.No new fracture identified.No unexpected radiopaque foreign body. Expected soft tissue gas related to recent surgery. Signed: Celia Ribeiro Verified Date/Time: 06/30/2020 16:25:30 Reading Location: [place] [address] CT Body Reading Room [facility], 1 OR 2 [id number] 14:33:00Reason for exam:->ArthroplastyShould this be performed at the bedside?->NoFINAL REPORT TECHNIQUE: RAD, PELVIS, 1 OR 2 VIEWS INDICATION: Arthroplasty COMPARISON: None. FINDINGS:There is a fracture of the right femoral neck. No dislocation. Mild degenerative changes are noted in the bilateral hips.. IMPRESSION:Fracture of the right femoral neck.. Signed: Enrike Bergman Verified Date/Time: 06/30/2020 14:33:50 Reading Location: [facility] C013T Transitional Reading Room Type and screen, [id number] 12:37:00 Test Item Value Reference Range Interpretation Comments ABO/RH AUTOMATED (BEAKER) (test A POSITIVE code = 2260) Ab Scrn (test code = 890-4) POSITIVE echo2 [facility] CenterABORH, [id number] 12:30:00 Test Item Value Reference Range Interpretation Comments ABO Grouping (test code = 2588) A Rh Factor (test code = 2589) POS [facility] CenterPOCT[facility]GLUCOSE [id number] 11:20:00 Test Item Value Reference Range Interpretation Comments POC-GLUCOSE METER 315 mg/dL 70-110 H : TESTED A T [facility] 6720 (BEAKER) (test code = [place], 1538) 7[address]: Quantitative Developer/Techni kameron ID = [id number] for HERBIE MALIK Hemoglobin [id number] 10:56:00 Test Item Value Reference Range Interpretation Comments Hemoglobin A1C (test code = 4548-4) 5.8 % 4.3-6.1 Lab Interpretation (test code = Normal 24966-6) [facility] CenterHEMOGLOBIN [id number] 10:56:00 Test Item Value Reference Range Interpretation Comments HEMOGLOBIN A1C (BEAKER) (test code = 5.8 % 4.3-6.1 368) SARS-CoV2/RT-PCR (Asymptomatic ONLY)2020-06-30 10:53:00 Test Item Value Reference Range Interpretation Comments SARS-COV2/RT-PCR Negative Not Detected, (test code = Negative, See 17071-9) external report for linked test SARS-COV-2 [facility] PERFORMING LAB (test code = 27476-5) LUPE (test code = Negative result for this LUPE) test determines that SARS-CoV-2 RNA was not present in the specimen above the Limit of Detection (LOD). However, Negative results do not preclude SARS-CoV-2 infection and should not be used as the sole basis for treatment or patient management decisions. Negative results must be combined with clinical observations, patient history, and epidemiological information. A false negative result may occur if a specimen is improperly collected, transported or handled. A false negative result should be considered if patient's recent exposures or clinical presentation indicate that COVID-19 (SARS-CoV-2) is likely and diagnostic tests for other causes of illness are negative. Re-testing should be considered in cases of suspected [...] Food and Drug Administration (FDA) cleared or approved. This is a modified version of an approved [...] of the Act. Fact Sheet for Healthcare Providers:https://www.[employer]/sites/default/f gael/product/documents/F act_Sheet_HC_Providers_L amf_QHVC-SlU-9.pdf Fact Sheet for Healthcare Patients:https://www.[employer]/sites/default/fi les/product/documents/Fa ct_Sheet_Patients_Lyra_S ARS-CoV-2.pdf Performing Laboratory:[facility] [place] [address] [facility] ([facility] & REF LABS)2020-06-30 10:53:00 Test Item Value Reference Range Interpretation Comments SARS-COV2/RT-PCR (test Negative Not Detected, Negative, code = 0884500) See external report for linked test SARS-COV-2 PERFORMING LAB [facility] (test code = 6137952) Negative result for this test determines that SARS-CoV-2 RNA was not present in the specimen above the Limit of Detection (LOD). However, Negative results do not preclude SARS-CoV-2 infection and should not be used as the sole basis for treatment or patient management decisions. Negative results mustbe combined with clinical observations, patient history, and epidemiological information. A false negative result may occur if a specimen is improperly collected, transported or handled. A false negative result should be considered if patient's recent exposures or clinical presentation indicate that COVID-19 (SARS-CoV-2) is likely and diagnostic tests for other causes of illness are negative. Re-testing should be considered in cases of suspected false negatives.The limit of detection for this assay is 800 copies/mL.This SARS CoV-2 test is a real-time RT-PCR test intended for the qualitative detection of nucleic acid from SARS-CoV-2 in a nasopharyngeal swab specimen collected from individuals susp ected of COVID-19 by their healthcare provider.This test has not been Food and Drug Administration (FDA) cleared or approved. This is a modified version of an approved [...] is revoked under Section 564(g) of the Act.Fact Sheet for Healthcare Providers:https://www.[employer]/sites/default/files/product/documents/Fact_Shee e_XX_Etcqlbcks_Mxkc_GHXR-InA-1.pdfFact Sheet for Healthcare Patients:https://www.[employer]/sites/default/files/product/ documents/Ohob_Dqqxu_Qsxmzuaz_Vtmd_HEGS-MyN-5.pdfPerforming Laboratory:[facility], [place] [id number] METER 2020-06-30 07:17:00 Test Item Value Reference Range Interpretation Comments POC-GLUCOSE METER 200 mg/dL 70-110 H : TESTED A T [facility] 6720 (BEAKER) (test code = [facility], 1538) [address]: Quantitative Developer/Techni kameron ID = [id number] for HERBIE MALIK BASIC METABOLIC [id number] 06:20:00 Test Item Value Reference Range Interpretation Comments SODIUM (BEAKER) 137 meq/L 136-145 (test code = 381) POTASSIUM (BEAKER) 4.0 meq/L 3.5-5.1 (test code = 379) CHLORIDE (BEAKER) 107 meq/L 98-107 (test code = 382) CO2 (BEAKER) (test 22 meq/L 22-29 code = 355) BLOOD UREA NITROGEN 26 mg/dL 7-21 H (BEAKER) (test code = 354) CREATININE (BEAKER) 1.15 mg/dL 0.57-1.25 (test code = 358) GLUCOSE RANDOM 161 mg/dL 70-105 H (BEAKER) (test code = 652) CALCIUM (BEAKER) 7.8 mg/dL 8.4-10.2 L (test code = 697) EGFR (BEAKER) (test 64 mL/min/1.73 ESTIMA JUAN GFR IS code = 1092) sq m NOT ACCURATE CREATININE CLEARANCE IN PREDICTING GLOMERULAR FILTRATION RATE . ESTIMATED GFR I S NOT APPLICABLE FOR DIALYSIS PATIEN TS. Quantitative Developer ID - MARYJO LLipid [id number] 06:11:00 Test Item Value Reference Range Interpretation Comments Triglycerides (test 81 mg/dL code = 2571-8) Cholesterol (test code 107 mg/dL = 2093-3) HDL (test code = 37 mg/dL 2085-9) LDL Calculated (test 54 mg/dL code = 37801-8) LUPE (test code = LUPE) Triglyceride Reference Range: Low Risk <150 Borderline 150-199 High Risk 200-499 Very High Risk >=500 Cholesterol Reference Range: Low Risk <200 Borderline 200-239 High Risk >240 HDL Cholesterol Reference Range: Low Risk >=60 High Risk <40 LDL Cholesterol Reference Range: Optimal <100 Near Optimal 100-129 Borderline 130-159 High 160-189 Very High >=190 Quantitative Developer ID - MARYJO Catherine [facility] [id number] 06:11:00 Test Item Value Reference Range Interpretation Comments Protein, Total (test code 6.1 6.0- 8.3 gm/dL = 2885-2) Albumin (test code = 3.5 g/dL 3.5-5 20397-7) Total Bilirubin (test code 1.5 mg/dL 0.2-1.2 H = 1974-2) Bilirubin, Direct (test 0.7 mg/dL 0.1-0.5 H code = 1968-7) Alkaline Phosphatase (test 63 U/L 40-150 code = 6768-6) AST (test code = 1920-8) 21 U/L 5-34 ALT (test code = 1742-6) 24 U/L 6-55 LUPE (test code = LUPE) Quantitative Developer ID - MARYJO Catherine Lab Interpretation (test Abnormal code = 89150-2) [facility] [id number] 06:11:00 Test Item Value Reference Range Interpretation Comments TRIGLYCERIDES (BEAKER) (test code = 81 mg/dL 540) CHOLESTEROL (BEAKER) (test code = 107 mg/dL 631) HDL CHOLESTEROL (BEAKER) (test code 37 mg/dL = 976) LDL CHOLESTEROL CALCULATED (BEAKER) 54 mg/dL (test code = 633) Triglyceride Reference Range: Low Risk <150 Borderline 150-199 High Risk 200-499 Very High Risk >=500Cholesterol Reference Range: Low Risk <200 Borderline 200-239 High Risk >240HDL Cholesterol Reference Range: Low Risk >=60 High Risk <40LDL Cholesterol Reference Range: Optimal <100 Near Optimal 100-129 Borderline 130-159 High 160-189 Very High >=190 Quantitative Developer ID - MARYJOLHEPATIC FUNCTION [id number] 06:11:00 Test Item Value Reference Range Interpretation Comments TOTAL PROTEIN (BEAKER) (test code = 6.1 gm/dL 6.0-8.3 770) ALBUMIN (BEAKER) (test code = 1145) 3.5 g/dL 3.5-5.0 BILIRUBIN TOTAL (BEAKER) (test code 1.5 mg/dL 0.2-1.2 H = 377) BILIRUBIN DIRECT (BEAKER) (test 0.7 mg/dL 0.1-0.5 H code = 706) ALKALINE PHOSPHATASE (BEAKER) (test 63 U/L 40-150 code = 346) AST (SGOT) (BEAKER) (test code = 21 U/L 5-34 353) ALT (SGPT) (BEAKER) (test code = 24 U/L 6-55 347) Quantitative Developer ID - MARYJO LCBC with platelet count + automated [id number] 05:47:00 Test Item Value Reference Range Interpretation Comments WBC (test code = 6690-2) 12.2 3.5- 10.5 K/L H RBC (test code = 789-8) 4.44 4.63- 6.08 M/L L MCHC (test code = 786-4) 31.8 32.3- 36.5 GM/DL L Hematocrit (test code = 4544-3) 40.3 % 40.1-51 MCV (test code = 787-2) 90.8 fL 79-92.2 MCH (test code = 785-6) 28.8 pg 25.7-32.2 RDW (test code = 788-0) 12.9 % 11.6-14.4 Platelets (test code = 777-3) 171 150- 450 K/CU MM MPV (test code = 63027-1) 11.2 fL 9.4-12.4 nRBC (test code = 413) 0 0- 0 /100 WBC % Neutros (test code = 429) 72 % % Lymphs (test code = 430) 13 % % Monos (test code = 431) 12 % % Eos (test code = 432) 3 % % Baso (test code = 437) 0 % # Neutros (test code = 670) 8.82 1.78- 5.38 K/L H # Lymphs (test code = 414) 1.57 1.32- 3.57 K/L # Monos (test code = 415) 1.45 0.30- 0.82 K/L H # Eos (test code = 416) 0.31 0.04- 0.54 K/L # Baso (test code = 417) 0.05 0.01- 0.08 K/L Immature Granulocytes-Relative 0 % 0-1 (test code = 2801) Lab Interpretation (test code = Abnormal 97965-5) [facility] W/PLT COUNT & AUTO [id number] 05:47:00 Test Item Value Reference Range Interpretation Comments WHITE BLOOD CELL COUNT (BEAKER) 12.2 K/ L 3.5-10.5 H (test code = 775) RED BLOOD CELL COUNT (BEAKER) 4.44 M/ L 4.63-6.08 L (test code = 761) HEMOGLOBIN (BEAKER) (test code = 12.8 GM/DL 13.7-17.5 L 410) HEMATOCRIT (BEAKER) (test code = 40.3 % 40.1-51.0 411) MEAN CORPUSCULAR VOLUME (BEAKER) 90.8 fL 79.0-92.2 (test code = 753) MEAN CORPUSCULAR HEMOGLOBIN 28.8 pg 25.7-32.2 (BEAKER) (test code = 751) MEAN CORPUSCULAR HEMOGLOBIN CONC 31.8 GM/DL 32.3-36.5 L (BEAKER) (test code = 752) RED CELL DISTRIBUTION WIDTH 12.9 % 11.6-14.4 (BEAKER) (test code = 412) PLATELET COUNT (BEAKER) (test 171 K/CU MM 150-450 code = 756) MEAN PLATELET VOLUME (BEAKER) 11.2 fL 9.4-12.4 (test code = 754) NUCLEATED RED BLOOD CELLS 0 /100 WBC 0-0 (BEAKER) (test code = 413) NEUTROPHILS RELATIVE PERCENT 72 % (BEAKER) (test code = 429) LYMPHOCYTES RELATIVE PERCENT 13 % (BEAKER) (test code = 430) MONOCYTES RELATIVE PERCENT 12 % (BEAKER) (test code = 431) EOSINOPHILS RELATIVE PERCENT 3 % (BEAKER) (test code = 432) BASOPHILS RELATIVE PERCENT 0 % (BEAKER) (test code = 437) NEUTROPHILS ABSOLUTE COUNT 8.82 K/ L 1.78-5.38 H (BEAKER) (test code = 670) LYMPHOCYTES ABSOLUTE COUNT 1.57 K/ L 1.32-3.57 (BEAKER) (test code = 414) MONOCYTES ABSOLUTE COUNT (BEAKER) 1.45 K/ L 0.30-0.82 H (test code = 415) EOSINOPHILS ABSOLUTE COUNT 0.31 K/ L 0.04-0.54 (BEAKER) (test code = 416) BASOPHILS ABSOLUTE COUNT (BEAKER) 0.05 K/ L 0.01-0.08 (test code = 417) IMMATURE GRANULOCYTES-RELATIVE 0 % 0-1 PERCENT (BEAKER) (test code = 2801) POCT-GLUCOSE [id number] 23:33:00 Test Item Value Reference Range Interpretation Comments POC-GLUCOSE METER 89 mg/dL 70-110 : TESTED A T [facility] 6720 (BEAKER) (test code = [facility], 1538) [address]: Quantitative Developer/Techni kameron ID = [id number] for DONOVAN ACE POCT-GLUCOSE [id number] 22:45:00 Test Item Value Reference Range Interpretation Comments POC-GLUCOSE METER 53 mg/dL 70-110 L : TESTED A T [facility] 6720 (BEAKER) (test code = [facility], 1538) [address]: Quantitative Developer/Techni kameron ID = [id number] for ORLANDO CUETO
== END 2020-06-29 18:36 | disposition short-term general hospital (02) ==
LOC: ER 14:32
DX: S72.041A Displaced fracture of base of neck of right femur, initial encounter for closed fracture (principal); W01.198A Fall on same level from slipping, tripping and stumbling with subsequent striking against other object, initial encounter; Y93.01 Activity, walking, marching and hiking; Y92.89 Other specified places as the place of occurrence of the external cause; E10.9 Type 1 diabetes mellitus without complications
CPT/HCPCS: 85025; 80048; 36415; 85610; 82947 ×2; 85730; 73502; 96375; 96374; 99285; J3010; J7042